=== PATIENT | female | born 2005 | race African-American/Black ===

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

== ENCOUNTER 2023-03-16 18:29 | Emergency (ER) | payer OTHER ==
[2023-03-16 18:33] VITALS: BP 107/74; PULSE 109; RESP 18; TEMP 98.1; BMI 25.6
[2023-03-16] MEDS ORDERED: predniSONE 20 MG TABLET (UD) ONE (20:55)
[2023-03-16] MEDS: ALBUTEROL SO4 2.5/IPRATROPIUM 0.5 INH SOL 3 ML VIAL.NEB. NEB SCH ×6 (20:58→21:25)
[2023-03-16] MEDS ORDERED: ALBUTEROL SO4 2.5/IPRATROPIUM 0.5 INH SOL 3 ML VIAL.NEB. NEB SCH (21:00)
[2023-03-16] MEDS ORDERED: predniSONE 20 MG TABLET (UD) PO ONE (21:15)
[2023-03-17] MEDS ORDERED: predniSONE 20 MG TABLET (UD) PO SCH (10:00)
== END 2023-03-16 22:19 | disposition home or self-care (01) ==
LOC: JERFT 18:29
PROC: 3E0F7GC Introduction of Other Therapeutic Substance into Respiratory Tract, Via Natural or Artificial Opening (ICD-10-PCS; principal; 2023-03-16)
DX: J45.901 Unspecified asthma with (acute) exacerbation (principal); R06.02 Shortness of breath; R05.9 Cough, unspecified; J34.89 Other specified disorders of nose and nasal sinuses; Z20.822 Contact with and (suspected) exposure to COVID-19
CPT/HCPCS: 0241U-QW; 71046-TC-FY; 99284-25

== ENCOUNTER 2025-07-07 23:24 | Emergency (ER) | payer OTHER ==
[2025-07-07 23:34] VITALS: BP 106/66; PULSE 82; RESP 18; TEMP 98.1; BMI 27.4
[2025-07-08] MEDS ORDERED: MAG HYDROX/AL HYDROX/SIMETH 30 ML UNIT-DOSE CUP ONE (00:04)
[2025-07-08] MEDS ORDERED: ONDANSETRON *ODT* 4 MG TABLET ONE (00:04)
[2025-07-08] MEDS ORDERED: FAMOTIDINE 20 MG TABLET ONE (00:04)
[2025-07-08] MEDS: MAG HYDROX/AL HYDROX/SIMETH 30 ML UNIT-DOSE CUP PO ONE (00:19)
[2025-07-08] MEDS: ONDANSETRON *ODT* 4 MG TABLET SL ONE (00:19)
[2025-07-08] MEDS: FAMOTIDINE 20 MG TABLET PO ONE (00:19)
[2025-07-08 01:14] LABS: HCG,QUALITATIVE URINE Negative
[2025-07-08 01:23] LABS: URINE APPEARANCE CLEAR; URINE BILIRUBIN NEGATIVE (NEGATIVE); URINE COLOR YELLOW; URINE GLUCOSE (UA) NEGATIVE (NEGATIVE); URINE KETONE NEGATIVE (NEGATIVE); URINE LEUK ESTERASE NEGATIVE (NEGATIVE); URINE NITRITE NEGATIVE (NEGATIVE); URINE PROTEIN NEGATIVE (NEGATIVE); URINE UROBILINOGEN 0.2 mg/dL (0.2-1.0)
== END 2025-07-08 01:42 | disposition home or self-care (01) ==
LOC: JER 23:24
DX: R11.0 Nausea (principal); R42 Dizziness and giddiness; R35.0 Frequency of micturition; R30.0 Dysuria; R05.9 Cough, unspecified; R09.81 Nasal congestion
CPT/HCPCS: 71046-TC-FY; 81003; 82962; 84703; 87086; 87637-QW; 99284-25; Q0162